=== PATIENT | female | born 1980 | race Caucasian/White ===

== ENCOUNTER 2018-11-04 09:42 | Emergency (ER) | payer MEDICAID, OTHER ==
[~2018-11-04] VITALS: Ht 167.6 cm; Wt 84.0 kg
[2018-11-04 09:44] VITALS: BP 125/85
[2018-11-04] MEDS ORDERED: IBUPROFEN 200 MG TABLET ONE (10:21)
[2018-11-04] MEDS ORDERED: IBUPROFEN 600 MG TABLET PO ONE (11:00)
== END 2018-11-04 10:59 | disposition home or self-care (01) ==
LOC: ED 10:30
DX: S90.122A Contusion of left lesser toe(s) without damage to nail, initial encounter (principal); G89.11 Acute pain due to trauma; W22.8XXA Striking against or struck by other objects, initial encounter; Y93.89 Activity, other specified; Y92.59 Other trade areas as the place of occurrence of the external cause; Y99.8 Other external cause status
CPT/HCPCS: 99283